=== PATIENT | female | born 1990 | race Caucasian/White ===

== ENCOUNTER 2018-01-14 14:05 | Emergency (ER) | payer OTHER ==
[~2018-01-14] VITALS: Ht 165.1 cm; Wt 89.5 kg
[~2018-01-14 14:05] MED LIST: EXPECTA PRENAT1 EACH PO; IBUPROFEN800 MG PO; IRON325 M1 PO; ZANTAC300 MG PO; ZOFRAN ODT4 MG PO
[2018-01-14 14:29] LABS: HEMATOCRIT 34.5 % (36.0-46.0); HEMOGLOBIN 11.8 G/DL (11.9-15.5); MCH 27.8 PG (29.0-34.0); MCHC 34.2 G/DL (30.0-36.0); MCV 81.4 FL (83-99); PLATELET COUNT 329 K/uL (156-360); RBC DIS.WIDTH-SD 40.8 % (39-53); RED BLOOD COUNT 4.24 M/uL (3.80-5.20); WHITE BLOOD COUNT 11.9 K/uL (4.1-10.2)
[2018-01-14 14:29] LABS: APPEARANCE CLEAR ((CLEAR)); BILIRUBIN NEGATIVE; BLOOD SMALL; COLOR STRAW ((YELLOW)); GLUCOSE (STRIP) NEGATIVE; KETONES 20; LEUKOCYTES NEGATIVE; NITRITE NEGATIVE; PROTEIN (STRIP) NEGATIVE; SPECIFIC GRAVITY 1.009 (1.000-1.030); UROBILINOGEN 0.2 MG/DL (0.2-1.0)
[2018-01-14 14:32] LABS: BACTERIA RARE /HPF; EPITHELIAL CELLS RARE /HPF; MUCUS NONE SEEN /LPF; RED BLOOD CELLS 0-5 /HPF (0-5); WHITE BLOOD CELLS 0-5 /HPF (0-5)
[2018-01-14 14:38] LABS: CHLORIDE 108 mEq/L (99-109); POTASSIUM 3.5 mEq/L (3.7-5.4); SODIUM 138 mEq/L (136-147)
[2018-01-14 14:39] LABS: GLUCOSE 89 mg/dL (70-99)
[2018-01-14 14:43] LABS: CREATININE 0.6 mg/dL (0.6-1.3); GFR ESTIMATE (CALCULATED) > 59 mL/min/
[2018-01-14 14:44] LABS: UREA NITROGEN (BUN) 7 mg/dL (9-23)
[2018-01-14 15:08] LABS: QUANTITATIVE HCG 144120.3 MIU/ML
[2018-01-14] MEDS ORDERED: ZOFRAN ODT4 MG PO (15:56)
[2018-01-14 16:13] VITALS: BP 107/58
== END 2018-01-14 16:14 | disposition home or self-care (01) ==
LOC: EME 14:05
PROVIDERS: Nurse Practitioner Family
DX: O26.891 Other specified pregnancy related conditions, first trimester (principal); R10.2 Pelvic and perineal pain; N89.8 Other specified noninflammatory disorders of vagina; Z3A.11 11 weeks gestation of pregnancy; Z87.891 Personal history of nicotine dependence
CPT/HCPCS: 76801; 80048; 81003; 84702; 85027; 99281; 99284